=== PATIENT | female | born 1995 | race American Indian/Alaskan Native ===

== ENCOUNTER 2016-10-14 09:59 | Emergency (ER) | payer BC ==
[2016-10-14 10:13] VITALS: BP 112/66
[2016-10-14] MEDS ORDERED: ZITHROMAX PO ONE (11:54)
[2016-10-14] MEDS ORDERED: ROCEPHIN IM ONE (11:54)
[2016-10-14] MEDS ORDERED: XYLOCAINE 1% MPF 5 mL INFILTRATI ONE (11:54)
[2016-10-14 12:46] LABS: Bacteria,Urine 1+ /HPF (Negative); Bilirubin,Urine NEG (Negative); Blood,Urine NEG (Negative); Ketones,Urine NEG (Negative); Leukocyte Esterase,Urine NEG (Negative); Mucus,Urine 3+ /HPF; Nitrite,Urine NEG (Negative); Urobilinogen,Urine < 2.0 mg/dL (<2.0)
--- NOTE | 2016-10-14 13:00 | Emergency Department Report ---
Entered by DONALD CALIX, acting as scribe for RAYNA CAMP PA. ED Female HPI - General Chief complaint: Urogenital-Female Stated complaint: POSS STD Time Seen by Provider: 10/14/16 11:28 Source: patient Mode of arrival: Ambulatory Limitations: No Limitations - History of Present Illness Initial comments: 20 y/o female presents c/o possible STD that she found out about 5 days ago. Sx include mild vaginal discharge and abd pain noting that this is consistent with her Hx of fibroids. She also notes her boyfriend calling her 5 days ago notifying her that he had Chlamydia. 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 She denies using any control. She denies fevers chills/nausea/vomiting/abdominal pain/spasm bleeding/vaginal discharge or vaginal irritation MD Complaint: vaginal bleeding, vaginal discharge, possible STD -: days(s) (5) Location: other (diffuse) Radiation: non-radiating Severity: mild Quality: other (constant) Consistency: constant Improves with: none Worsens with: none Are you Now?: No Associated Symptoms: vaginal discharge (mild), abdominal pain (consistent with fibroids) - Related Data Sexually active: Yes Previous Rx's Medication Instructions Recorded Last Taken Type Sulfamethoxazole/Trimethoprim 1 tab PO BID #14 tab 10/14/16 Unknown Rx [Bactrim 400-80 mg] metroNIDAZOLE [Flagyl] 500 mg PO ONCE #4 tab 10/14/16 Unknown Rx Allergies Allergy/AdvReac Type Severity Reaction Status Date / Time No Known Allergies Allergy Verified 11/18/13 01:22 ED Review of Systems Comment: All other systems reviewed and negative Gastrointestinal: abdominal pain ED Past Medical Hx - Past Medical History Previous Medical History?: No - Surgical History Past Surgical History?: Yes Additional Surgical History: - Social History Smoking Status: Never Smoker Substance Use Type: None - Medications Home Medications: Home Medications Medication Instructions Recorded Confirmed Last Taken Type Sulfamethoxazole/Trimethoprim 1 tab PO BID #14 tab 10/14/16 Unknown Rx [Bactrim 400-80 mg] metroNIDAZOLE [Flagyl] 500 mg PO ONCE #4 tab 10/14/16 Unknown Rx ED Physical Exam - General Limitations: No Limitations - Other Other exam information: GENERAL: Patient is alert and oriented x 3. No apparent distress, normal gait, atraumatic. HEAD: Head is normocephalic and atraumatic. EYES: Extraocular movements are intact. Pupils are equal, round, and reactive to light and accommodation. NECK: Supple. Non edematous, no carotid bruits. No lymphadenopathy or thyromegaly. LUNGS: Symmetrical with respiration. No wheezing, rales or crackles, CTAB. HEART: Regular rate and rhythm with normal S1/S2 present. No murmurs, rubs, or gallops. ABDOMEN: Soft, nondistended. Nontender to palpation on all quadrants. No organomegaly was noted. Positive bowel sounds. No CVA tenderness. EXTREMITIES/MUSCULOSKELETAL: No cyanosis, clubbing, rash, lesions or edema. Full ROM bilaterally. UE/LE Pulses 2+ bilaterally. SKIN: Warm and dry. No lesions, ulceration or induration present ED Course Vital Signs 10/14/16 10:08 Temperature 98.8 F Pulse Rate 86 Respiratory 16 Rate Blood Pressure 112/66 O2 Sat by Pulse 100 Oximetry ED Medical Decision Making - Medical Decision Making 20-year-old female presents with exudative exposure/urinary tract infection uncomplicated ED course: Patient received treatment of STD; Rocephin, azithromycin 1 g. Patient is sent home on Flagyl 2 g and Bactrim DS. Discussed the patient take medication as discussed. Discussed findings with patient. Discussed increase hydration. Discussed with patient to follow up with [employer] Dr. Wesley, and to return to the ED if her symptoms return or worsen. Patient states understanding and will follow instructions. Vital signs stable, patient is in no acute distress. ED Disposition Clinical Impression: Exposure to STD, STD (sexually transmitted disease) UTI (urinary tract infection) Qualifiers: Urinary tract infection type: acute cystitis Hematuria presence: with hematuria Qualified Code(s): N30.01 - Acute cystitis with hematuria Disposition: DISCHARGED TO HOME OR SELFCARE Is pt being admited?: No Does the pt Need Aspirin: No Condition: Stable Instructions: Chlamydia Infection (ED), Sexually Transmitted Diseases (ED), Safe Sex (ED), Urinary Tract Infection in Women (ED) Additional Instructions: Follow-up with your [employer] JUSTICE PROFESSOR doctor for further STD testing Take your Medication as discussed Prescriptions: metroNIDAZOLE [Flagyl] 500 mg PO ONCE #4 tab Sulfamethoxazole/Trimethoprim [Bactrim 400-80 mg] 1 tab PO BID #14 tab Referrals: AYAN WESLEY MD [Primary Care Provider] - 3-5 Days Forms: Work/School Release Form(ED) Time of Disposition: 12:37 This documentation as recorded by the YOGI sethi RYAN,accurately reflects the service I personally performed and the decisions made by ,RAYNA CAMP PA.
== END 2016-10-14 13:07 | disposition home or self-care (01) ==
LOC: ED 09:59
DX: N30.01 Acute cystitis with hematuria (principal); Z20.2 Contact with and (suspected) exposure to infections with a predominantly sexual mode of transmission
CPT/HCPCS: 81001; 81025; 96372; 99282; J0696